=== PATIENT | male | born 1950 | race Caucasian/White ===

== ENCOUNTER 2016-11-27 11:32 | Outpatient (CLI) | payer MEDICARE ==
[2016-11-27 12:36] LABS: #Basophils 0.1 thou/uL (0.0-0.2); #Eosinphils 0.1 thou/uL (0.0-0.7); #Lymphocytes 2.7 thou/uL (1.20-3.40); #Monocytes 0.5 thou/uL (0.11-0.59); #Neutrophils 4.2 thou/uL (1.40-6.50); %Basophils 0.9 % (0.0-1.0); %Eosinophils 0.7 % (0.0-10.0); %Lymphocytes 35.5 % (21.0-51.0); %Monocytes 6.1 % (0.0-10.0); Mean Platelet Volume 7.4 fL (7.4-10.4); Red Blood Cell (RBC) Count 5.45 mill/uL (4.70-6.10); White Blood Cell (WBC) Count 7.5 thou/uL (4.8-10.8)
[2016-11-27 12:45] LABS: Bilirubin Negative (Negative); Blood, Urine Negative (Negative); Glucose, Urine (Dipstick) 500 mg/dL (Negative); Ketone, Urine Negative (Negative); Nitrite Negative (Negative); Protein, Urine (Dipstick) 30 mg/dL (Neg-Trace); Urobilinogen 0.2 mg/dL (0.2-1.0)
[2016-11-27 13:06] LABS: ALT (SGPT) 20 U/L (0-55); AST (SGOT) 13 U/L (5-34); Alkaline Phosphatase 89 U/L (40-150); Anion Gap 14 mmol/L (10-20); BUN (Urea Nitrogen) 9 mg/dL (8.4-25.7); Bilirubin, Total 0.9 mg/dL (0.2-1.2); Calc. Creatinine Clearance 0 mL/min (70-130); Calcium 9.9 mg/dL (7.8-10.44); Carbon Dioxide 27 mmol/L (23-31); Chloride 101 mmol/L (98-107); Estimated GFR-MDRD 79; Globulin 2.4 g/dL (2.4-3.5); LDL Cholesterol, Calculated 108 mg/dL; Protein, Total 6.9 g/dL (5.8-8.1)
[2016-11-27 13:10] LABS: Hemoglobin A1c 11.5 % (4.0-6.0)
[2016-11-27 13:24] LABS: Bacteria/HPF Rare-Few HPF (None Seen); RBC/HPF 0-3 HPF (0-3); Squamous Epithelial 0-3 HPF (0-3); WBC/HPF 0-3 HPF (0-3)
[2016-11-27 18:19] LABS: Microalbumin Urine 10.9 mg/dL (0.5-50.0)
== END 2016-11-27 11:33 ==
LOC: NAVSJIPCSP 11:32
PROVIDERS: ATTEND Internal Medicine
DX: Z12.5 Encounter for screening for malignant neoplasm of prostate (principal); E78.5 Hyperlipidemia, unspecified; I11.9 Hypertensive heart disease without heart failure; E11.40 Type 2 diabetes mellitus with diabetic neuropathy, unspecified; M17.9 Osteoarthritis of knee, unspecified; R53.83 Other fatigue
CPT/HCPCS: 36415; 80053; 80061; 81003; 81015; 82043; 83036; 85025; G0103

== ENCOUNTER 2017-04-11 11:07 | Outpatient (CLI) | payer MEDICARE ==
[2017-04-11 12:41] LABS: Hemoglobin A1c 10.5 % (4.0-6.0)
[2017-04-11 13:01] LABS: Anion Gap 16 mmol/L (10-20); BUN (Urea Nitrogen) 13 mg/dL (8.4-25.7); Calc. Creatinine Clearance 0 mL/min (70-130); Calcium 9.2 mg/dL (7.8-10.44); Carbon Dioxide 26 mmol/L (23-31); Cardiac Risk 5.3 (Less than 4.5); Chloride 102 mmol/L (98-107); Cholesterol 179 mg/dl (< 200 Desired); Estimated GFR-MDRD 74; Glucose 236 mg/dL (80-115); HDL Cholesterol 34 mg/dL (>60 Neg Risk); LDL Cholesterol, Calculated 106 mg/dL; Potassium 4.8 mmol/L (3.5-5.1); Sodium 139 mmol/L (136-145); Triglycerides 196 mg/dL (Less than 150)
== END 2017-04-11 11:08 | disposition home or self-care (01) ==
LOC: NAVSJIPCSP 11:07
PROVIDERS: ATTEND Internal Medicine
DX: E78.5 Hyperlipidemia, unspecified (principal); I11.9 Hypertensive heart disease without heart failure; E11.40 Type 2 diabetes mellitus with diabetic neuropathy, unspecified; Z79.899 Other long term (current) drug therapy
CPT/HCPCS: 36415; 80048; 80061; 83036

== ENCOUNTER 2020-02-11 10:11 | Outpatient (CLI) | payer MEDICARE ==
[~2020-02-11 10:11] MED LIST: Iopamidol 370 76% 100 ML VIAL ONE
--- NOTE | 2020-02-11 11:27 | CT ---
Exam: Head CT without and with contrast HISTORY: Right leg weakness. Symptoms are new onset. COMPARISON: none FINDINGS: Hemorrhage: No intraparenchymal hemorrhage or extra-axial hematoma. Brain parenchyma: Cortical martin-white matter differentiation is preserved. No mass effect or midline shift. Basilar cisterns are patent.Indeterminate hypodensities involving the left centrum semiovale. Ventricular system: Ventricles and sulci are patent and symmetric. Calvarium: Intact. Sinuses and mastoid air cells: Adequate aeration. Postcontrast images: No pathologic enhancement of the brain parenchyma IMPRESSION: 1. Indeterminate hypodensity in the left centrum semiovale. Given symptoms, better interrogation with brain MRI is recommended. 2. No pathologic enhancement of the brain parenchyma
== END 2020-02-11 10:12 | disposition home or self-care (01) ==
LOC: NAV CT 10:11
PROVIDERS: ATTEND Internal Medicine
DX: R29.898 Other symptoms and signs involving the musculoskeletal system (principal)
CPT/HCPCS: 70470; Q9967